=== PATIENT | female | born 1970 | race Caucasian/White ===

== ENCOUNTER 2020-10-07 11:10 | Outpatient (REF) | payer OTHER, SELFPAY ==
[2020-10-07 12:43] LABS: MANUAL DIFF FLAG NO
[2020-10-07 12:49] LABS: Basophils Percent Auto 0.7 % (0-2); Eosinophils Absolute Auto 0.3 X10*3/uL (0.0-0.4); Eosinophils Percent Auto 5.9 % (0-4); Hematocrit 39.7 % (37-47); Imm Gran Abs Auto 0.01 X10*3/uL (0.00-0.03); Imm Gran Pct Auto 0.2 % (0.0-0.4); Lymphocytes Absolute Auto 2.1 X10*3/uL (1.2-4.9); Lymphocytes Percent Auto 38.6 % (20-40); Mean Corpuscular HGB Conc 32.7 g/dl (31.0-35.0); Mean Corpuscular Hemoglobin 28.4 pg (27.0-33.0); Mean Corpuscular Volume 86.9 fL (80-98); Mean Platelet Volume 9.8 fL (9.4-12.3); Monocytes Absolute Auto 0.4 X10*3/uL (0.1-1.2); Monocytes Percent Auto 7.4 % (2-11); Neutrophils Absolute Auto 2.6 X10*3/uL (2.0-8.3); Neutrophils Percent Auto 47.2 % (45-73); Platelet Count 289 X10*3/uL (160-400); Red Blood Count 4.57 X10*6/uL (4.20-5.50); Red Cell Distribution Width 13.2 % (11.0-16.0); White Blood Count 5.6 X10*3/uL (4.8-10.8)
[2020-10-07 13:15] LABS: Alanine Aminotransferase 29 U/L (0-31); Albumin Level 4.3 g/dL (3.5-5.0); Alkaline Phosphatase 61 U/L (39-117); Anion Gap 13 (12-20); Aspartate Amino Transferase 24 U/L (5-31); Bilirubin Total 0.2 mg/dL (0.0-1.0); Blood Urea Nitrogen 11 mg/dL (9-16); Calcium 9.7 mg/dL (8.4-10.2); Carbon Dioxide 27 mmol/L (22-29); Chloride 105 mmol/L (96-108); Cholesterol 289 mg/dL; Estimated Glomerular Filt Rate > 60; Glucose Fasting 105 mg/dL (60-99); HDL Cholesterol 49 mg/dL; LDL Cholesterol Calculated 187 mg/dl; Potassium 4.4 mmol/L (3.3-5.1); Sodium 141 mmol/L (135-145); Total Protein 7.1 g/dL (6.5-8.0); Triglycerides 268 mg/dL
[2020-10-07 13:29] LABS: Free T4 (Free Thyroxine) 0.82 ng/dL (0.71-1.85); Thyroid Stimulating Hormone 1.86 uIU/mL (0.32-4.0)
[2020-10-07 13:41] LABS: Estimated Average Glucose 157 mg/dL; Hemoglobin A1C 180.6293 umol/L; Hemoglobin A1c % 7.1 %
== END 2020-10-07 11:11 | disposition home or self-care (01) ==
LOC: HO.MANLDS 11:10
PROVIDERS: PCP Internal Medicine; Visit Provider Physician Assistant
DX: E78.5 Hyperlipidemia, unspecified (principal); E11.9 Type 2 diabetes mellitus without complications; F41.9 Anxiety disorder, unspecified
CPT/HCPCS: 36415; 80053; 80061; 83036; 84439; 84443; 85025

== ENCOUNTER 2021-03-16 09:03 | Outpatient (REF) | payer OTHER, SELFPAY ==
[2021-03-16 10:50] LABS: MANUAL DIFF FLAG NO
[2021-03-16 10:52] LABS: Basophils Percent Auto 0.6 % (0-2); Eosinophils Absolute Auto 0.4 X10*3/uL (0.0-0.4); Eosinophils Percent Auto 5.5 % (0-4); Hematocrit 41.2 % (37.0-47.0); Hemoglobin 13.6 g/dl (12.0-16.0); Imm Gran Abs Auto 0.02 X10*3/uL (0.00-0.03); Imm Gran Pct Auto 0.3 % (0.0-0.4); Lymphocytes Absolute Auto 2.6 X10*3/uL (1.2-4.9); Lymphocytes Percent Auto 37.8 % (20-40); Mean Corpuscular Hemoglobin 29.2 pg (27.0-33.0); Mean Corpuscular Volume 88.4 fL (80.0-98.0); Mean Platelet Volume 9.8 fL (9.4-12.3); Monocytes Absolute Auto 0.5 X10*3/uL (0.1-1.2); Monocytes Percent Auto 6.8 % (2-11); Neutrophils Absolute Auto 3.31 x10*3/uL (2.0-8.3); Platelet Count 294 X10*3/uL (160-400); Red Blood Count 4.66 X10*6/uL (4.20-5.50); Red Cell Distribution Width 13.2 % (11.0-16.0); White Blood Count 6.8 X10*3/uL (4.8-10.8)
[2021-03-16 11:14] LABS: Estimated Average Glucose 174 mg/dL; Hemoglobin A1c % 7.7 %
[2021-03-16 11:29] LABS: Alanine Aminotransferase 28 U/L (0-31); Albumin Level 4.2 g/dL (3.5-5.0); Alkaline Phosphatase 77 U/L (39-117); Anion Gap 15 (12-20); Aspartate Amino Transferase 23 U/L (5-31); Bilirubin Total 0.3 mg/dL (0.0-1.0); Blood Urea Nitrogen 13 mg/dL (9-16); Calcium 9.1 mg/dL (8.4-10.2); Carbon Dioxide 24 mmol/L (22-29); Chloride 106 mmol/L (96-108); Cholesterol 274 mg/dL; Estimated Glomerular Filt Rate > 60; Glucose Fasting 127 mg/dL (60-99); HDL Cholesterol 48 mg/dL; LDL Cholesterol Calculated 184 mg/dl; Potassium 4.5 mmol/L (3.3-5.1); Sodium 140 mmol/L (135-145); Total Protein 6.8 g/dL (6.5-8.0); Triglycerides 214 mg/dL
== END 2021-03-16 09:04 | disposition home or self-care (01) ==
LOC: HO.MANLDS 09:03
PROVIDERS: PCP Physician Assistant; Visit Provider Physician Assistant
DX: E78.2 Mixed hyperlipidemia (principal)
CPT/HCPCS: 36415; 80053; 80061; 83036; 85025

== ENCOUNTER 2021-09-07 12:13 | Outpatient (REF) | payer OTHER, SELFPAY ==
[2021-09-07 13:29] LABS: MANUAL DIFF FLAG NO
[2021-09-07 13:37] LABS: Basophils Percent Auto 0.6 % (0-2); Eosinophils Absolute Auto 0.4 X10*3/uL (0.0-0.4); Eosinophils Percent Auto 5.3 % (0-4); Hematocrit 40.5 % (37.0-47.0); Hemoglobin 13.5 g/dl (12.0-16.0); Imm Gran Abs Auto 0.02 X10*3/uL (0.00-0.03); Imm Gran Pct Auto 0.3 % (0.0-0.4); Lymphocytes Absolute Auto 2.7 X10*3/uL (1.2-4.9); Lymphocytes Percent Auto 41.5 % (20-40); Mean Corpuscular HGB Conc 33.3 g/dl (31.0-35.0); Mean Corpuscular Hemoglobin 29.4 pg (27.0-33.0); Mean Corpuscular Volume 88.2 fL (80.0-98.0); Mean Platelet Volume 9.5 fL (9.4-12.3); Monocytes Absolute Auto 0.5 X10*3/uL (0.1-1.2); Monocytes Percent Auto 7.6 % (2-11); Neutrophils Percent Auto 44.7 % (45-73); Platelet Count 277 X10*3/uL (160-400); Red Blood Count 4.59 X10*6/uL (4.20-5.50); Red Cell Distribution Width 13.2 % (11.0-16.0); White Blood Count 6.6 X10*3/uL (4.8-10.8)
[2021-09-07 13:48] LABS: Estimated Average Glucose 140 mg/dL; Hemoglobin A1c % 6.5 %
[2021-09-07 14:08] LABS: Alanine Aminotransferase 28 U/L (0-31); Albumin Level 4.5 g/dL (3.5-5.0); Alkaline Phosphatase 68 U/L (39-117); Anion Gap 13 (12-20); Aspartate Amino Transferase 27 U/L (5-31); Bilirubin Total 0.3 mg/dL (0.0-1.0); Blood Urea Nitrogen 16 mg/dL (9-16); Calcium 10.9 mg/dL (8.4-10.2); Carbon Dioxide 29 mmol/L (22-29); Chloride 104 mmol/L (96-108); Cholesterol 276 mg/dL; Estimated Glomerular Filt Rate > 60; Glucose Fasting 105 mg/dL (60-99); HDL Cholesterol 60 mg/dL; LDL Cholesterol Calculated 182 mg/dl; Potassium 4.7 mmol/L (3.3-5.1); Sodium 141 mmol/L (135-145); Total Protein 7.5 g/dL (6.5-8.0); Triglycerides 170 mg/dL
== END 2021-09-07 12:14 | disposition home or self-care (01) ==
LOC: HO.MANLDS 12:13
PROVIDERS: PCP Physician Assistant; Visit Provider Physician Assistant
DX: E78.2 Mixed hyperlipidemia (principal)
CPT/HCPCS: 36415; 80053; 80061; 83036; 85025

== ENCOUNTER 2021-10-13 10:10 | Outpatient (REF) | payer OTHER, SELFPAY ==
[2021-10-13 12:41] LABS: MANUAL DIFF FLAG NO
[2021-10-13 12:46] LABS: Basophils Absolute Auto 0.1 X10*3/uL (0.0-0.2); Basophils Percent Auto 0.9 % (0-2); Eosinophils Absolute Auto 0.3 X10*3/uL (0.0-0.4); Eosinophils Percent Auto 5.5 % (0-4); Hematocrit 40.7 % (37.0-47.0); Hemoglobin 13.5 g/dl (12.0-16.0); Imm Gran Abs Auto 0.02 X10*3/uL (0.00-0.03); Imm Gran Pct Auto 0.4 % (0.0-0.4); Lymphocytes Absolute Auto 2.3 X10*3/uL (1.2-4.9); Mean Corpuscular HGB Conc 33.2 g/dl (31.0-35.0); Mean Corpuscular Hemoglobin 29.8 pg (27.0-33.0); Mean Corpuscular Volume 89.8 fL (80.0-98.0); Mean Platelet Volume 9.9 fL (9.4-12.3); Monocytes Absolute Auto 0.3 X10*3/uL (0.1-1.2); Neutrophils Absolute Auto 2.6 x10*3/uL (2.0-8.3); Neutrophils Percent Auto 46.2 % (45-73); Platelet Count 276 X10*3/uL (160-400); Red Blood Count 4.53 X10*6/uL (4.20-5.50); Red Cell Distribution Width 13.5 % (11.0-16.0); White Blood Count 5.7 X10*3/uL (4.8-10.8)
[2021-10-13 13:00] LABS: Estimated Average Glucose 140 mg/dL; Hemoglobin A1c % 6.5 %
[2021-10-13 13:26] LABS: Alanine Aminotransferase 34 U/L (0-31); Albumin Level 4.2 g/dL (3.5-5.0); Alkaline Phosphatase 68 U/L (39-117); Anion Gap 14 (12-20); Aspartate Amino Transferase 24 U/L (5-31); Bilirubin Total < 0.2 mg/dL (0.0-1.0); Blood Urea Nitrogen 13 mg/dL (9-16); Calcium 10.2 mg/dL (8.4-10.2); Carbon Dioxide 26 mmol/L (22-29); Chloride 104 mmol/L (96-108); Cholesterol 272 mg/dL; Estimated Glomerular Filt Rate > 60; Glucose Random 230 mg/dL (60-115); HDL Cholesterol 52 mg/dL; Iron 105 mcg/dL (30-160); LDL Cholesterol Calculated 164 mg/dl; Percent Iron Saturation 31 % (15-50); Sodium 140 mmol/L (135-145); Total Iron Binding Capacity 343 mcg/dL (228-428); Triglycerides 284 mg/dL; Unsaturated Iron Binding 238 ug/dL
[2021-10-13 13:38] LABS: TSH reflex Free T4 2.25 uIU/mL (0.32-4.0); Vitamin D 25-OH Total 24.7 ng/mL (>30)
[2021-10-13 14:03] LABS: Folate 18.5 ng/mL (> or = 4.0); Vitamin B12 553 pg/mL (200-900)
== END 2021-10-13 10:11 | disposition home or self-care (01) ==
LOC: HO.MANLDS 10:10
PROVIDERS: Visit Provider Physician Assistant
DX: D50.0 Iron deficiency anemia secondary to blood loss (chronic) (principal); E78.2 Mixed hyperlipidemia; E11.65 Type 2 diabetes mellitus with hyperglycemia; L64.8 Other androgenic alopecia
CPT/HCPCS: 36415; 80053; 80061; 82306; 82607; 82746; 83036; 83540; 84443; 85025

== ENCOUNTER 2022-01-24 10:27 | Outpatient (REF) | payer OTHER, SELFPAY ==
[2022-01-24 14:19] LABS: Estimated Average Glucose 154 mg/dL
== END 2022-01-24 10:28 | disposition home or self-care (01) ==
LOC: HO.MANLDS 10:27
PROVIDERS: Physician Assistant; Visit Provider Internal Medicine
DX: E11.9 Type 2 diabetes mellitus without complications (principal)
CPT/HCPCS: 36415; 83036

== ENCOUNTER 2022-01-26 15:32 | Outpatient (REF) | payer OTHER, SELFPAY ==
[2022-01-29 10:37] LABS: Lutenizing Hormone 39.5 mIU/mL
[2022-02-02 16:52] LABS: Estrogen 162.4 pg/mL
[2022-02-02 17:32] LABS: Progesterone <0.1 ng/mL
== END 2022-01-26 15:33 | disposition home or self-care (01) ==
LOC: HO.MANLDS 15:32
PROVIDERS: Visit Provider Physician Assistant
DX: N95.1 Menopausal and female climacteric states (principal)
CPT/HCPCS: 36415; 82672; 83001; 83002; 84144

== ENCOUNTER 2022-05-03 10:53 | Outpatient (REF) | payer OTHER, SELFPAY ==
[2022-05-03 15:03] LABS: Cholesterol 219 mg/dL; HDL Cholesterol 51 mg/dL; LDL Cholesterol Calculated 131 mg/dl; Triglycerides 188 mg/dL
[2022-05-03 16:11] LABS: Estimated Average Glucose 154 mg/dL
== END 2022-05-03 10:54 | disposition home or self-care (01) ==
LOC: HO.MANLDS 10:53
PROVIDERS: Visit Provider Physician Assistant
DX: E11.65 Type 2 diabetes mellitus with hyperglycemia (principal)
CPT/HCPCS: 36415; 80061; 83036

== ENCOUNTER 2022-09-28 09:57 | Outpatient (REF) | payer OTHER, SELFPAY ==
[2022-09-28 12:15] LABS: Estimated Average Glucose 146 mg/dL; Hemoglobin A1c % 6.7 %
[2022-09-28 12:43] LABS: Cholesterol 208 mg/dL; HDL Cholesterol 51 mg/dL; LDL Cholesterol Calculated 127 mg/dl; Triglycerides 150 mg/dL
== END 2022-09-28 09:58 | disposition home or self-care (01) ==
LOC: HO.MANLDS 09:57
PROVIDERS: Visit Provider Physician Assistant
DX: E11.9 Type 2 diabetes mellitus without complications (principal)
CPT/HCPCS: 36415; 80061; 83036

== ENCOUNTER 2023-01-18 10:08 | Outpatient (REF) | payer OTHER, SELFPAY ==
[2023-01-18 13:05] LABS: MANUAL DIFF FLAG NO
[2023-01-18 13:25] LABS: Basophils Percent Auto 0.5 % (0-2); Eosinophils Absolute Auto 0.3 X10*3/uL (0.0-0.4); Hematocrit 42.3 % (37.0-47.0); Hemoglobin 13.9 g/dl (12.0-16.0); Imm Gran Abs Auto 0.02 X10*3/uL (0.00-0.03); Imm Gran Pct Auto 0.3 % (0.0-0.4); Lymphocytes Absolute Auto 2.8 X10*3/uL (1.2-4.9); Lymphocytes Percent Auto 42.5 % (20-40); Mean Corpuscular HGB Conc 32.9 g/dl (31.0-35.0); Mean Corpuscular Volume 88.1 fL (80.0-98.0); Mean Platelet Volume 9.3 fL (9.4-12.3); Monocytes Absolute Auto 0.5 X10*3/uL (0.1-1.2); Monocytes Percent Auto 7.2 % (2-11); Neutrophils Percent Auto 45.5 % (45-73); Platelet Count 258 X10*3/uL (160-400); Red Cell Distribution Width 13.1 % (11.0-16.0); White Blood Count 6.5 X10*3/uL (4.8-10.8)
[2023-01-18 13:35] LABS: Estimated Average Glucose 154 mg/dL
[2023-01-18 13:53] LABS: Alanine Aminotransferase 35 U/L (0-31); Albumin Level 4.2 g/dL (3.5-5.0); Alkaline Phosphatase 77 U/L (39-117); Anion Gap 13 (12-20); Aspartate Amino Transferase 31 U/L (5-31); Bilirubin Total 0.3 mg/dL (0.0-1.0); Blood Urea Nitrogen 15 mg/dL (9-16); Calcium 9.8 mg/dL (8.4-10.2); Carbon Dioxide 26 mmol/L (22-29); Chloride 105 mmol/L (96-108); Estimated Glomerular Filt Rate > 60; Glucose Random 138 mg/dL (60-115); Potassium 4.1 mmol/L (3.3-5.1); Sodium 140 mmol/L (135-145); Total Protein 7.2 g/dL (6.5-8.0)
[2023-01-18 13:57] LABS: Cortisol Random 6.4 ug/dL
[2023-01-18 14:13] LABS: Free T4 (Free Thyroxine) 0.81 ng/dL (0.71-1.85); Thyroid Stimulating Hormone 2.26 uIU/mL (0.32-4.0)
[2023-01-20 01:38] LABS: Thyroid Peroxidase Antibodies <1 IU/mL (<9)
== END 2023-01-18 10:09 | disposition home or self-care (01) ==
LOC: HO.MANLDS 10:08
PROVIDERS: Visit Provider Physician Assistant
DX: E11.65 Type 2 diabetes mellitus with hyperglycemia (principal); R63.5 Abnormal weight gain
CPT/HCPCS: 36415; 80053; 82533; 83036; 84439; 84443; 85025; 86376

== ENCOUNTER 2023-10-18 11:13 | Outpatient (REF) | payer OTHER, SELFPAY ==
[2023-10-18 13:58] LABS: Estimated Average Glucose 292 mg/dL; Hemoglobin A1c % 11.8 % (<6.0)
[2023-10-18 15:23] LABS: Alanine Aminotransferase 49 U/L (0-31); Albumin Level 4.1 g/dL (3.5-5.0); Alkaline Phosphatase 70 U/L (39-117); Anion Gap 16 (12-20); Aspartate Amino Transferase 57 U/L (5-31); Bilirubin Total 0.5 mg/dL (0.0-1.0); Blood Urea Nitrogen 10 mg/dL (9-16); Calcium 9.8 mg/dL (8.4-10.2); Carbon Dioxide 25 mmol/L (22-29); Chloride 100 mmol/L (96-108); Estimated Glomerular Filt Rate > 60; Sodium 137 mmol/L (135-145); Total Protein 7.2 g/dL (6.5-8.0)
[2023-10-19 07:14] LABS: Glucose Random 413 mg/dL (60-115)
== END 2023-10-18 11:14 | disposition home or self-care (01) ==
LOC: HO.MANLDS 11:13
PROVIDERS: Visit Provider Physician Assistant
DX: E11.65 Type 2 diabetes mellitus with hyperglycemia (principal)
CPT/HCPCS: 36415; 80053; 83036

== ENCOUNTER 2025-01-01 15:24 | Outpatient (REF) | payer OTHER, SELFPAY ==
--- OUTSIDE RECORDS SUMMARY | 2025-01-01 16:17 | XMS_ITS | Encounter Summary ---
Author Organization [facility] Address [address] [place] [id number] Phone Care Team Providers Care Pondman Name Role Phone KadyAaron gutiérrez Primary Care Provider [phone] Reason for Referral * MRI/CAT Scan - Closed Specialty Diagnoses / Procedures Referred By Contac t Referred To Contact Radiology Diagnoses Dyspnea, unspecified type Procedures NC Myocardial Perfusion Stress Single NC Myocardial Perfusion Exercise Multiple Lou Guerrero MD Phone: tel: fax: [email or web address] Referral ID Status Reason Start Date Expiration Date Visits Re quested Visits Authorized [id number] Closed 08/14/2018 10/13/2018 1 1 Encounter Details Date Type Department Care Team (Latest Contact Info) Description 08/23/2018 Ancillary [facility] [address] [place] [address] [address], [address] [place] [address] Lou Guerrero MD [address] [place] [phone] [email or web address] Dyspnea, unspecified type Social History Tobacco Use Types Packs/Day Years Used Date Smoking Tobacco: Never Assessed Comments Unknown Sex and Gender Information Value Date Recorded Sex Assigned at Not on file Legal Sex Female 9:32 PM EDT Gender Identity Not on file Sexual Orientation Not on file documented as of this encounter Plan of Treatment Not on file documented as of this encounter Results * NC Myocardial Perfusion Stress Single (08/23/2018 9:28 AM EDT) Nuc Stress EF 62 % LV Systolic Volume Index 27 mL/m2 LV Diastolic Volume Index 70 mL/m2 Anatomical Region Laterality Modality Heart Ultrasound Narrative 08/24/2018 8:36 AM EDT Normal study. There is no evidence of myocardial infarction or ischemia. Normal LV size and function with no regional wall motion abnormalities. Very low likelihood of hemodynamically significant coronary artery disease. Low risk study for myocardial events or cardiac in the next two years. Nuclear Study Quality TYPE OF STUDY: Myocardial Perfusion Imaging after exercise utilizing a standard Pete protocol with gated SPECT. PROTOCOL USED: Stress protocol only in the supine and prone position. Images were obtained in gated tomographic technique. Images were processed in SPECT format, reconstructed tomographically and compared [id number] in short axis, horizontal long axis and vertical long axis. DOSE: Technetium 99m Sestamibi 11.8 mCi injected intravenously during stress on 08/23/2018 with post injection scan time of 20 minutes. Overall image quality is good. Breast attenuation artifact is present. Study was gated successfully. Perfusion Defect The lung to heart ratio is 0.27. Response to Stress BMI: 38.87 Patient exercised for 5:49 minutes on a standard Pete protocol achieving 7.0 METs and 99% MPHR (173 BPM). The test was terminated due to limiting chest tightness. SUMMARY: 1. RESTING ECG: Sinus rhythm with nonspecific ST/T wave abnormalities 2. EXERCISE ECG: No ischemic ECG changes with exercise 3. SYMPTOMS: Reported chest tightness of 3/10 in stage II, this progressed to limiting chest tightness of 4/10. This improved spontaneously in recovery. 4. PHYSIOLOGY: Appropriate exercise physiology. Resting heart rate of 86 bpm kerri to a max heart rate of 173 bpm, this represents 99% MPHR. Resting BP of 108/78 kerri to a max BP of 168/70. Vital signs stable and returned to baseline prior to discharge from the lab. Achieved 7.0 METs consistent with average functional capacity for age. 5. ARRHYTHMIA: No ectopy. CONCLUSION: Equivocal ECG portion of exercise stress test with out ECG changes suggestive of ischemia and with symptoms concerning for angina. Appropriate exercise physiology. Average functional capacity. Nuclear images and report to follow. See attached stress report for full details. Alfredito Jesus, [employer] . Stress Function Comments Post-stress ejection fraction was 62%. Stress end diastolic index: 70 mL/m2. Stress end systolic index: 27 mL/m2. Perfusion Scoring Stress Summed Score: 0 Percent Normal: 0.00% The left ventricular perfusion is normal. Procedure Note Aaron Hernandez MD / Chance Lyman MD - 08/24/2018 Normal study. There is no evidence of myocardial infarction or ischemia. Normal LV size and function with no regional wall motion abnormalities. Very low likelihood of hemodynamically significant coronary arterydisease. Low risk study for myocardial events or cardiac in the next twoyears. Lou Molly Guerrero MD CV NM CARDIAC Final Re sult documented in this encounter Visit Diagnoses Diagnosis Dyspnea, unspecified type Dyspnea, unspecified type documented in this encounter Additional Health Concerns Infection Onset Date Last Indicated Resolved Time CoV-Exposed Comment:Recent close contact 12/04/2019 12/04/2019 12/18/2019 1:24 AM EDT documented as of this encounter Care Teams Pondman Relationship Specialty Start Date End Date Aaron Johnson DO [email or web address] PCP - General Internal Medicine 06/27/18 documented as of this encounter Additional Source Comments The information contained in this document represents components of the legal health record. It is not the complete legal health record.[facility]
[2025-01-01 17:48] LABS: Hemoglobin A1C 191.0316 umol/L; Total Hemoglobin (HGBA1C) 3867.0309 umol/L
[2025-01-01 18:00] LABS: Alanine Aminotransferase 24 U/L (0-31); Albumin Level 4.5 g/dL (3.5-5.0); Alkaline Phosphatase 82 U/L (39-117); Anion Gap 14 (12-20); Aspartate Amino Transferase 25 U/L (5-31); Blood Urea Nitrogen 22 mg/dL (9-16); Calcium 10.1 mg/dL (8.4-10.2); Carbon Dioxide 27 mmol/L (22-29); Chloride 103 mmol/L (96-108); Cholesterol 263 mg/dL (<200); Estimated Glomerular Filt Rate > 60; HDL Cholesterol 54 mg/dL (>40); Potassium 4.1 mmol/L (3.3-5.1); Sodium 140 mmol/L (135-145); Total Protein 7.1 g/dL (6.5-8.0); Triglycerides 143 mg/dL (<150)
== END 2025-01-01 15:25 | disposition home or self-care (01) ==
LOC: HO.MANLDS 15:24
PROVIDERS: Visit Provider Physician Assistant
DX: E11.65 Type 2 diabetes mellitus with hyperglycemia (principal); E78.2 Mixed hyperlipidemia
CPT/HCPCS: 36415; 80053; 80061; 83036

== ENCOUNTER 2025-04-17 13:21 | Outpatient (REF) | payer OTHER, SELFPAY ==
--- NOTE | ~2025-04-17 | XR_ITS ---
EXAMINATION: XR BILATERAL HIPS WITH AP PELVIS CLINICAL INFORMATION: Bilateral hip pain. COMPARISON: None available. TECHNIQUE: AP view of the pelvis and 2 views of each hip were obtained. FINDINGS: Right hip: Mild right hip arthritis. No visible acute fracture, dislocation or suspicious bony lesion. Left hip: Severe arthritis, joint space loss, subchondral sclerosis and cyst. There is mixed sclerosis and lucency in the femoral head, presumably related to the arthritic changes, however component of avascular necrosis cannot be entirely excluded. No acute fracture or dislocation. Pelvis: Pelvic rings are intact. SI joints and symphysis pubis are intact. Mild symphysis pubis degeneration. No acute pelvic fracture. Metallic hardware projected over the lumbosacral junction, and the inferior pelvis. XR/XR hip BI w [id number] IMPRESSION: * Mild right hip arthritis * Severe left hip arthritis. Left femoral head mixed lucency and sclerosis presumably related to arthritis, component of avascular necrosis not excluded. * No evidence of acute fracture Electronically signed by: David Duffy MD 04/18/2025 08:24 AM CHARLY
== END 2025-04-17 13:22 | disposition home or self-care (01) ==
LOC: HO.HMGCX 13:21
PROVIDERS: PCP Physician Assistant; Visit Provider Physician Assistant
DX: M25.552 Pain in left hip (principal); M25.551 Pain in right hip
CPT/HCPCS: 73521

== ENCOUNTER → 2025-04-17 13:31 | Outpatient (BNV) | payer OTHER, SELFPAY | PROVIDERS: PCP Physician Assistant; Visit Provider Radiology Diagnostic Ultrasound | DX: M16.0 Bilateral primary osteoarthritis of hip (principal); M89.252 Other disorders of bone development and growth, left femur | CPT/HCPCS: 73521 ==